=== PATIENT | male | born 1995 | race Caucasian/White ===

== ENCOUNTER 2017-05-13 08:27 | Inpatient (IN) | payer BC, OTHER ==
[~2017-05-13] VITALS: Ht 177.8 cm; Wt 72.6 kg
[2017-05-14 00:05] VITALS: BP 111/69
[2017-05-14] MEDS ORDERED: MAG HYDROX/AL HYDROX/SIMETH 30 ML LIQUID UDC PO PRN (01:15)
[2017-05-14] MEDS ORDERED: LOPERAMIDE HCL 2 MG CAPSULE PO PRN ×2 (01:15)
[2017-05-14] MEDS ORDERED: MAGNESIUM HYDROXIDE 30 ML LIQUID UDC PO PRN (01:15)
[2017-05-14] MEDS ORDERED: MIRALAX 17 GM POWD.PACK PO PRN (01:15)
[2017-05-14] MEDS ORDERED: ONDANSETRON ODT 4 MG TAB.RAPDIS SL PRN (01:15)
[2017-05-14] MEDS ORDERED: BUPRENORPHINE HCL 2 MG TAB.SUBL SL PRN (01:15)
[2017-05-14] MEDS ORDERED: DICYCLOMINE HCL 20 MG TABLET PO PRN (01:15)
[2017-05-14] MEDS ORDERED: ACETAMINOPHEN 325 MG TABLET PO PRN (01:15)
[2017-05-14 01:26] LABS: *AMPHETAMINE, URINE NEGATIVE (NEGATIVE); *BARBITURATE, URINE NEGATIVE (NEGATIVE); *CANNABINOID, URINE POSITIVE (NEGATIVE); *COCCAINE, URINE NEGATIVE (NEGATIVE); *OPIATE, URINE POSITIVE (NEGATIVE); *PHENCYCLIDINE SCREEN,URINE NEGATIVE (NEGATIVE)
[2017-05-14 04:05] VITALS: BP 108/68
[2017-05-14 08:18] LABS: ETHANOL < 3 MG/DL (0-0)
[2017-05-14 08:25] LABS: ALANINE AMINOTRANSFERASE 27 U/L (16-63); ALKALINE PHOSPHATASE 116 U/L (50-136); ASPARTATE AMINOTRANSFERASE 21 U/L (15-37); BILIRUBIN,TOTAL 0.4 mg/dL (0.2-1.0); CARBON DIOXIDE 31 mmol/L (21-32); CHLORIDE 103 mmol/L (98-107); CREATININE 0.9 mg/dL (0.6-1.3); GLUCOSE 91 mg/dL (74-106); MAGNESIUM 2.1 mg/dL (1.8-2.4); POTASSIUM 4.3 mmol/L (3.5-5.1); TOTAL PROTEIN, SERUM 6.9 g/dL (6.4-8.2); UREA NITROGEN, BLOOD 13 mg/dL (7-18)
[2017-05-14 08:26] LABS: BASOPHILS % (AUTO) 0.1 % (0.0-2.0); EOSINOPHILS # (AUTO) 0.1 K/uL (0.0-0.7); EOSINOPHILS % (AUTO) 1.3 % (0.0-7.0); HEMATOCRIT 39.9 % (40-50); HEMOGLOBIN 13.5 G/DL (14.0-18.0); LYMPHOCYTES # (AUTO) 1.5 K/UL (0.8-4.8); LYMPHOCYTES % (AUTO) 18.5 % (20.5-51.5); MEAN CORPUSCULAR HEMOGLOBIN 30.8 UUG (27.0-31.0); MEAN CORPUSCULAR HGB CONC 34 g/dL (32.0-37.0); MEAN CORPUSCULAR VOLUME 91.1 FL (82.0-92.0); MONOCYTES # (AUTO) 0.9 K/UL (0.1-1.30); MONOCYTES % (AUTO) 10.5 % (0.0-11.0); NEUTROPHILS # (AUTO) 5.8 K/UL (1.8-8.9); NEUTROPHILS % (AUTO) 69.6 % (38.5-71.5); PLATELET COUNT (AUTO) 201 K/UL (150-450); RED BLOOD CELL COUNT(AUTO) 4.38 MIL/UL (4.7-6.1); WHITE BLOOD COUNT (AUTO) 8.3 K/UL (4.0-11.2)
[2017-05-14] MEDS: MULTIVITAMINS,THERAPEUTIC TABLET PO SCH (08:35)
[2017-05-14] MEDS ORDERED: TUBERCULIN,PURIF.PROT.DERIV. 5 TU/0.1 ML TEST ID ONE (09:00)
[2017-05-14 12:00] VITALS: BP 115/61
[2017-05-14] MEDS: CLONIDINE HCL 0.1 MG TABLET PO PRN (13:56)
[2017-05-14] MEDS: HYDROXYZINE PAMOATE 25 MG CAPSULE PO PRN (13:56)
[2017-05-14] MEDS: IBUPROFEN 400 MG TABLET PO PRN (13:56)
[2017-05-14] MEDS: METHOCARBAMOL 750 MG TABLET PO PRN (13:56)
[2017-05-14 16:00] VITALS: BP 103/61
[2017-05-14] MEDS: BUPRENORPHINE HCL 2 MG TAB.SUBL SL PRN (18:26)
[2017-05-14 20:00] VITALS: BP 112/69
[2017-05-15] VITALS: BP 118/68
[2017-05-15] MEDS: HYDROXYZINE PAMOATE 25 MG CAPSULE PO PRN ×3 (00:20→21:13)
[2017-05-15] MEDS: diphenhydrAMINE 50 MG CAPSULE PO PRN ×2 (00:20→21:12)
[2017-05-15] MEDS: BUPRENORPHINE HCL 2 MG TAB.SUBL SL PRN (00:20)
[2017-05-15 04:00] VITALS: BP 111/71
[2017-05-15] MEDS: CLONIDINE HCL 0.1 MG TABLET PO PRN (04:31)
[2017-05-15] MEDS: IBUPROFEN 400 MG TABLET PO PRN ×3 (04:31→21:12)
[2017-05-15] MEDS: METHOCARBAMOL 750 MG TABLET PO PRN ×2 (04:31→21:12)
[2017-05-15 08:00] VITALS: BP 106/64
[2017-05-15] MEDS: MULTIVITAMINS,THERAPEUTIC TABLET PO SCH (08:56)
[2017-05-15] MEDS: BUPRENORPHINE HCL 2 MG TAB.SUBL SL SCH ×3 (08:57→21:12)
[2017-05-15] MEDS ORDERED: 4 DAY TAPER BUPRENORPHINE -SERENITY PROTOCOL SL PRN (09:00)
[2017-05-15 12:00] VITALS: BP 111/62
[2017-05-15 16:00] VITALS: BP 120/74
[2017-05-15 20:00] VITALS: BP 115/64
[2017-05-16] VITALS: BP 108/68
[2017-05-16 04:08] LABS: HEPATITIS B SURFACE AG Negative (Negative)
[2017-05-16 08:12] VITALS: BP 99/63
[2017-05-16] MEDS: MULTIVITAMINS,THERAPEUTIC TABLET PO SCH (08:35)
[2017-05-16] MEDS ORDERED: BUPRENORPHINE HCL 2 MG TAB.SUBL SL SCH (09:00)
[2017-05-16 13:18] VITALS: BP 111/70
[2017-05-16] MEDS: BUPRENORPHINE HCL 2 MG TAB.SUBL SL SCH ×2 (14:37→21:30)
[2017-05-16] MEDS: METHOCARBAMOL 750 MG TABLET PO PRN (14:37)
[2017-05-16 17:30] VITALS: BP 101/60
[2017-05-16 20:00] VITALS: BP 112/67
[2017-05-16] MEDS: diphenhydrAMINE 50 MG CAPSULE PO PRN (21:30)
[2017-05-16] MEDS: IBUPROFEN 400 MG TABLET PO PRN (21:30)
[2017-05-17] MEDS: CLONIDINE HCL 0.1 MG TABLET PO PRN (02:07)
[2017-05-17 08:00] VITALS: BP 134/62
[2017-05-17] MEDS: MULTIVITAMINS,THERAPEUTIC TABLET PO SCH (08:51)
[2017-05-17] MEDS: BUPRENORPHINE HCL 2 MG TAB.SUBL SL SCH ×3 (08:51→21:39)
[2017-05-17 12:00] VITALS: BP 102/61
[2017-05-17 16:00] VITALS: BP 114/62
[2017-05-17 20:00] VITALS: BP 116/69
[2017-05-17] MEDS: TRAZODONE 100 MG TABLET PO PRN (21:39)
[2017-05-18 08:00] VITALS: BP 100/53
[2017-05-18] MEDS: MULTIVITAMINS,THERAPEUTIC TABLET PO SCH (08:41)
[2017-05-18] MEDS ORDERED: BUPRENORPHINE HCL 2 MG TAB.SUBL SL SCH (09:00)
[2017-05-18 12:00] VITALS: BP 106/65
[2017-05-18 16:00] VITALS: BP 114/54
[2017-05-18] MEDS ORDERED: CLON0.1T14 PO (18:42)
[2017-05-18] MEDS ORDERED: HYDR-3895 PO (18:42)
[2017-05-18] MEDS ORDERED: METH-406 PO (18:42)
[2017-05-18] MEDS ORDERED: DICY20TA28 PO (18:42)
[2017-05-18 19:59] LABS: *AMPHETAMINE, URINE NEGATIVE (NEGATIVE); *BARBITURATE, URINE NEGATIVE (NEGATIVE); *CANNABINOID, URINE NEGATIVE (NEGATIVE); *COCCAINE, URINE NEGATIVE (NEGATIVE); *OPIATE, URINE NEGATIVE (NEGATIVE); *PHENCYCLIDINE SCREEN,URINE NEGATIVE (NEGATIVE)
[2017-05-18 20:06] VITALS: BP 103/60
[2017-05-18] MEDS: TRAZODONE 100 MG TABLET PO PRN (21:31)
[2017-05-19 00:30] VITALS: BP 100/69
[2017-05-19 04:10] VITALS: BP 96/56
[2017-05-19 08:00] VITALS: BP 100/67
[2017-05-19] MEDS: MULTIVITAMINS,THERAPEUTIC TABLET PO SCH (08:27)
== END 2017-05-19 09:25 | disposition home or self-care (01) | DRG 895 ==
LOC: SRC 23:19
PROVIDERS: ADMIT Internal Medicine; ATTEND Internal Medicine
PROC: HZ2ZZZZ Detoxification Services for Substance Abuse Treatment (ICD-10-PCS; principal; 2017-05-13)
PROC: HZ41ZZZ Group Counseling for Substance Abuse Treatment, Behavioral (ICD-10-PCS; 2017-05-15)
PROC: HZ31ZZZ Individual Counseling for Substance Abuse Treatment, Behavioral (ICD-10-PCS; 2017-05-17)
DX: F11.23 Opioid dependence with withdrawal (principal); F17.210 Nicotine dependence, cigarettes, uncomplicated; G47.00 Insomnia, unspecified
CPT/HCPCS: 36415; 70030-TC; 80307; 80349; 80361; 83735; 85025; 86580; 86705; 87340; 87806; A4663; G0480; Q0163